=== PATIENT | female | born 1965 | race Caucasian/White ===

== ENCOUNTER 2023-10-05 20:31 | Emergency (ER) | payer MEDICAID, OTHER ==
[~2023-10-05] VITALS: Ht 182.9 cm; Wt 54.4 kg
[~2023-10-05 20:31] MED LIST: ASPI-1205 PO
[2023-10-05 20:36] VITALS: BP 133/78; PULSE 104; RESP 20; TEMP 97.9; O2SAT 97
[2023-10-06] MEDS ORDERED: CEPH-588 PO (23:45)
== END 2023-10-06 00:05 | disposition left against medical advice (07) ==
LOC: MED 20:31
DX: M79.602 Pain in left arm (principal); R20.0 Anesthesia of skin; Z53.21 Procedure and treatment not carried out due to patient leaving prior to being seen by health care provider

== ENCOUNTER 2023-10-06 21:04 | Emergency (ER) | payer OTHER ==
[~2023-10-06] VITALS: Ht 182.9 cm; Wt 54.4 kg
[2023-10-06 21:18] VITALS: BP 138/74; PULSE 110; RESP 20; TEMP 97.2; O2SAT 100
[2023-10-06 22:00] VITALS: O2SAT 100
[2023-10-06 22:37] LABS: BASOPHILS # (AUTO) 0.1 K/uL (0.00-0.22); EOSINOPHILS # (AUTO) 0.2 K/uL (0-0.4); EOSINOPHILS % (AUTO) 2.8 % (0.0-4.0); HEMATOCRIT 43.9 % (36-48); HEMOGLOBIN 14.9 g/dL (12.0-16.0); LYMPHOCYTES # (AUTO) 2.5 K/uL (2.5-16.5); MEAN CORPUSCULAR HEMOGLOBIN 31 pg (27-31); MEAN CORPUSCULAR HGB CONC 34 g/dL (33-37); MEAN CORPUSCULAR VOLUME 92.1 fL (80-94); MONOCYTES # (AUTO) 0.5 K/uL (0.8-1.0); MONOCYTES % (AUTO) 6.3 % (1.7-9.3); NEUTROPHILS # (AUTO) 4.5 K/uL (1.8-7.7); NEUTROPHILS % (AUTO) 57.9 % (42.2-75.2); PLATELET COUNT (AUTO) 252 K/uL (140-450); RED BLOOD CELL COUNT(AUTO) 4.77 MIL/uL (4.20-5.40); RED CELL DISTRIBUTION WIDTH 12.9 % (11.6-13.7); WHITE BLOOD COUNT (AUTO) 7.7 K/uL (4.8-10.8)
[2023-10-06 22:52] LABS: CALCIUM 9.8 mg/dL (8.5-10.1); CARBON DIOXIDE 28.8 mmol/L (21-32); CREATININE 0.8 mg/dL (0.6-1.3); POTASSIUM 3.8 mmol/L (3.5-5.1)
[2023-10-06 23:09] LABS: APPEARANCE,URINE CLEAR (CLEAR); BILIRUBIN,URINE NEGATIVE (NEGATIVE); BLOOD, URINE 2+ (NEGATIVE); COLOR,URINE YELLOW (YELLOW); LEUKOCYTE ESTERASE ,URINE TRACE (NEGATIVE); NITRITE, URINE POSITIVE (NEGATIVE); PROTEIN,URINE NEGATIVE (NEGATIVE); UGLUCOSE NEGATIVE (NEGATIVE)
[2023-10-06 23:16] LABS: MUCUS,URINE 1+ /LPF (None Seen); SQUAMOUS EPITHELIAL CELL,UR 4-10 (MOD) /LPF (0-3 (FEW))
[2023-10-06 23:17] LABS: BACTERIA,URINE 3+ /HPF (None Seen)
[2023-10-06 23:38] VITALS: O2SAT 100
[2023-10-06] MEDS ORDERED: CEPH-588 PO (23:45)
[2023-10-07 00:07] VITALS: BP 138/74; PULSE 110; RESP 20; TEMP 97.2; O2SAT 100
== END 2023-10-07 00:08 | disposition home or self-care (01) ==
LOC: MED 21:04
DX: N39.0 Urinary tract infection, site not specified (principal); R26.2 Difficulty in walking, not elsewhere classified; Z79.82 Long term (current) use of aspirin; Z79.2 Long term (current) use of antibiotics; Z88.0 Allergy status to penicillin; Z88.5 Allergy status to narcotic agent
CPT/HCPCS: 36415; 70450; 80048; 81001; 82607; 85025; 86592; 87086; 87186; 99285